=== PATIENT | male | born 1935 | race Asian ===

== ENCOUNTER → 2016-05-13 | Outpatient (CLI) | payer OTHER ==
[~2016-05-13] MED LIST: ACAR100T2 PO; ASPI81TA42 PO; ATOR40TA71 PO; CARB1TAB14 PO; CARV25 PO; DIGO125T PO; DOCU250C91 PO; FURO20 PO; ISOS30TA6 PO; LISI-618 PO; METF500T4 PO; MULT-1192 PO; OMEP20 PO; POTA8TAB4 PO; SITA1TBM4 PO; VIT1TABL95 PO
== END | disposition home or self-care (01) ==
LOC: RADPV 09:09
PROVIDERS: ATTEND Internal Medicine
DX: I50.9 Heart failure, unspecified (principal); I70.0 Atherosclerosis of aorta; Z95.0 Presence of cardiac pacemaker; Z95.810 Presence of automatic (implantable) cardiac defibrillator; Z98.890 Other specified postprocedural states
CPT/HCPCS: 71020

== ENCOUNTER → 2016-06-25 | Outpatient (CLI) | payer OTHER ==
[~2016-06-25] MED LIST changes: +REGADENOSON 0.4 MG/5 ML PF SYRINGE IVP ONE; +SESTAMIBI TC99M/UD ISOTOPE 1 EA INJ INJ ONE
[2016-06-25 10:20] VITALS: BP 129/69
[2016-06-25 11:20] VITALS: BP 133/69
== END | disposition home or self-care (01) ==
LOC: CARDMN 09:53
PROVIDERS: ATTEND Internal Medicine Cardiovascular Disease
DX: I99.8 Other disorder of circulatory system (principal); R07.89 Other chest pain; R06.00 Dyspnea, unspecified
CPT/HCPCS: 78452; 93017; 93306; A9500

== ENCOUNTER → 2016-08-11 | Outpatient (CLI) | payer OTHER ==
[~2016-08-11] MED LIST changes: -REGADENOSON 0.4 MG/5 ML PF SYRINGE IVP ONE; -SESTAMIBI TC99M/UD ISOTOPE 1 EA INJ INJ ONE
== END | disposition home or self-care (01) ==
LOC: RADPV 10:49
PROVIDERS: ATTEND Internal Medicine
DX: M25.672 Stiffness of left ankle, not elsewhere classified (principal)